=== PATIENT | male | born 1975 | race Caucasian/White ===

== ENCOUNTER 2020-11-06 19:17 | Emergency (ER) | payer BC ==
[~2020-11-06 19:17] MED LIST: CEPH500 PO; OMEP20ER; OMEP20ER PO; OXYACE5T PO; RXHYDACE PO
== END 2020-11-06 19:44 | disposition left against medical advice (07) ==
LOC: ER 19:17
DX: Z53.21 Procedure and treatment not carried out due to patient leaving prior to being seen by health care provider (principal)